=== PATIENT | female | born 1960 | race Caucasian/White ===

== ENCOUNTER → 2025-04-19 | Outpatient (CLI) | payer MEDICARE ==
--- NOTE | 2025-04-28 11:04 | HMCIMG ---
CT MAXILLOFACIAL W/O CONTRAST CLINICAL HISTORY: Fracture of nasal bones, initial encounter for closed fracture COMPARISON: None TECHNIQUE: Thin axial images were obtained through the facial bones/orbits without/with the use of intravenous contrast. Coronal and sagittal reformatted images were also submitted for interpretation. CONTRAST: mL of Isovue FINDINGS: NASAL REGION: The nasal bones, frontal processes of the maxilla, and lamina papyracea are intact. The ethmoid air cells are clear. The nasal septum is not deviated. and the nasal spine is intact. ORBITS: The orbital dodge, floor, roof and rims are intact. The globes are symmetric and intact. There is no dislocation of the lens. Extraocular muscles are symmetric. Retro-ocular soft tissues are clear. ZYGOMA: The zygomatic arch, inferior and lateral orbital rim, and lateral and anterior dodge of the maxilla are intact. MAXILLARY REGION: The alveolar, pterygoid and palatine processes are intact. Maxillary sinuses are clear. MANDIBLE: The symphysis, body and ramus are intact. Coronoid process and alveolar ridges are unremarkable in appearance. No dislocation or fracture of the condyles. SOFT TISSUES: There is no soft tissue swelling or subcutaneous emphysema. The included brain is unremarkable. Visualized portions of the cervical spine look unremarkable. IMPRESSION: No acute fracture identified.
== END | disposition home or self-care (01) ==
LOC: RAH 11:03
PROVIDERS: ATTEND Otolaryngology
DX: S02.2XXA Fracture of nasal bones, initial encounter for closed fracture (principal); X58.XXXA Exposure to other specified factors, initial encounter; Y93.89 Activity, other specified; Y92.89 Other specified places as the place of occurrence of the external cause; Y99.8 Other external cause status
CPT/HCPCS: 70486